=== PATIENT | male | born 1990 | race Asian ===

== ENCOUNTER 2019-02-13 15:43 | Emergency (ER) | payer OTHER ==
[2019-02-13 15:50] VITALS: BP 112/78
--- NOTE | 2019-02-13 15:56 | EDPHY ---
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 The ball was kicked towards him and hit the tip of his left pinky finger. He felt immediate, constant pain and noticed that his finger was deviated to the side. He reports decreased range of motion and constant pain. Modifying Factors: None Comment: ROS: A comprehensive 10 system review of systems is otherwise negative aside from elements mentioned in the history of present illness. MEDICAL/SURGICAL/SOCIAL HISTORY: Medical history: Generally healthy. Does not take any regular medications. Surgical history: Denies Social history: Never smoked. CONSTITUTIONAL: Adult male, polite and cooperative, awake and alert, no obvious distress HEENT: Atraumatic and normocephalic, PERRL, EOMI. Nares patent; no rhinorrhea; no nasal mucosal edema. Tympanic membranes clear. Oropharynx clear, no exudate and moist pink mucosa. Airway patent. No lymphadenopathy. No meningismus. Cardiovascular: Normal S1/S2, regular rate, regular rhythm, without murmur rub or gallop. PULMONARY/CHEST: Symmetrical and nontender. Clear to auscultation bilaterally. Good air movement. No accessory muscle usage. ABDOMEN: Soft, nondistended, nontender, no rebound, no guarding, no peritoneal signs, no masses or organomegaly. No CVAT. EXTREMITIES: 2/2 radial pulses, [place] opener strength 5/5, left pinky finger at the DI P joint shows lateral angulation with decreased range of motion. No skin breakdown. no clubbing, no cyanosis or edema. NEUROLOGICAL: no focal neuro deficits. GCS 15. SKIN: Warm and dry, no erythema. no rash. Good capillary refill. Source: Patient Exam Limitations: No limitations - Medical/Surgical History Hx Asthma: No Hx Chronic Respiratory Disease: No Hx Diabetes: No Hx Cardiac Disease: No Hx Renal Disease: No Hx Cirrhosis: No Hx Alcoholism: No Hx HIV/AIDS: No Hx Splenectomy or Spleen Trauma: No Other PMH: denies - Social History Smoking Status: Never smoked Constitutional: Initial Vital Signs Temperature (C) 37 C 02/13/19 15:48 Heart Rate 88 02/13/19 15:48 Respiratory Rate 18 02/13/19 15:48 Blood Pressure 112/78 02/13/19 15:48 O2 Sat (%) 97 02/13/19 15:48 O2 Delivery Mode Room Air Allergies/Adverse Reactions: No Known Allergies Allergy (Unverified 02/13/19 15:47) Home Medications: Medication Instructions Recorded NK [No Known Home Meds] 02/13/19 Medical Decision Making - Diagnostics Imaging Results: Imaging Impressions Hand X-Ray 02/13/19 15:53 Impression: Minimally displaced avulsion fracture, likely of the palmar base of the middle phalanx of the fifth finger. Procedures: Procedure: Dislocation reduction. The dislocation of the left pinky finger at the DI P joint was reduced using counter traction technique without complications. Post reduction the patient's neurovascular exam is normal. Post reduction x-ray demonstrates reduction of the joint to the anatomic position. The procedure was performed by myself. Procedure: Splint placement. An aluminum finger splint was applied. After application of the splint I returned and re-examined the patient. The splint was adequately immobilizing the joint and distal to the splint the patient's circulation and sensation was intact. ED Course/Re-evaluation: Vital signs reviewed and stable upon arrival. Ice pack applied Dislocation at the DI P joint was reduced on 1st attempt Status post reduction x-ray shows normal anatomic alignment with small buccal plate avulsion fracture at the DI P joint Placed in aluminum finger splint, hand surgery follow-up No signs of neurovascular compromise/tenting of skin/compartment syndrome/ extremities and joints examined above and below area of concern and are neurovascularly intact. This patient was seen under the supervision of my secondary supervising physician. I evaluated and cared for this patient independently. Differential Diagnosis: Differential diagnosis includes but is not limited to dislocation, fracture, tendon injury, nerve injury. Departure - Departure Disposition: Home, Routine, Self-Care Clinical Impression: Closed dislocation of left little finger Avulsion fracture of middle phalanx of finger Qualifiers: Encounter type: initial encounter Fracture type: closed Qualified Code(s): S62.629A - Displaced fracture of middle phalanx of unspecified finger, initial encounter for closed fracture Condition: Good Instructions: Finger Dislocation (ED), Avulsion Fracture (ED) Additional Instructions: Keep the splint dry and in place until pain free or seen by Orthopedics. Take Tylenol 650 mg every 4 hours and/or Ibuprofen 600 mg every 8 hours with food as needed for pain. Apply ice for 30 minutes at a time; 2-3 times per day for the next 1-2 days. Follow up with Orthopedics in 7-10 days symptoms persist at which time they will evaluate and recommend with you if conservative management versus further imaging is indicated. Referrals: Eliseo Figueredo MD [Medical Doctor] - As per Instructions
== END 2019-02-13 16:33 | disposition home or self-care (01) ==
PROC: 0RSXXZZ Reposition Left Finger Phalangeal Joint, External Approach (ICD-10-PCS; principal; 2019-02-13)
DX: S62.627A Displaced fracture of middle phalanx of left little finger, initial encounter for closed fracture (principal); S63.257A Unspecified dislocation of left little finger, initial encounter; W21.02XA Struck by soccer ball, initial encounter; Y93.66 Activity, soccer
CPT/HCPCS: L3925